=== PATIENT | male | born 1995 | race Two or more races ===

== ENCOUNTER 2017-09-17 17:54 | Emergency (ER) | payer BC ==
--- NOTE | 2017-09-17 18:29 | UC ---
Skin Complaint HPI - HPI Summary HPI Summary: 22 y/o male presents to the urgent care c/o tick bite on his scrotum he noticed on about 1 hrs ago. He tried to remove it, but he feels some tick parts still on him. It itches a little. [place] in [place]. tick was engorged. Pt denies pain fever, MASCORRO, joint pains, SOB, chest pain, abdominal pain , N/V/D. No Hx of tick bite in the past. - History of Current Complaint Time Seen by Provider: 09/17/17 18:26 Stated Complaint: TICK Hx Obtained From: Patient Onset/Duration: Sudden Onset, Lasting Days - 1 day, Still Present, Worse Since - 1 hrs ago Skin Exposure Onset/Duration: Days Ago - 1 day Timing: Constant Onset Severity: Mild Current Severity: Mild Pain Intensity: 0 Pain Scale Used: 0-10 Numeric Location: Discrete - RT side of scrotum Character: Redness - w/ tick remnants Aggravating Factor(s): Touch Alleviating Factor(s): Nothing Associated Signs & Symptoms: Positive: Rash Related History: Possible Reaction to: Insect - Allergy/Home Medications Allergies/Adverse Reactions: Allergies Allergy/AdvReac Type Severity Reaction Status Date / Time Penicillins Allergy Rash Verified 09/17/17 18:37 Home Medications: Home Medications Cimetidine TAB (NF) [Tagamet (NF)] 300 mg PO DAILY 09/17/17 [History Confirmed 09/17/17] Fexofenadine HCl 180 mg PO DAILY 09/17/17 [History Confirmed 09/17/17] Review of Systems Constitutional: Negative Skin: Rash - w/ tick remnants Eyes: Negative ENT: Negative Respiratory: Negative Cardiovascular: Negative Gastrointestinal: Negative Genitourinary: Negative Motor: Negative Neurovascular: Negative Musculoskeletal: Negative Neurological: Negative Psychological: Negative Is Patient Immunocompromised?: No All Other Systems Reviewed And Are Negative: Yes PMH/Surg Hx/FS Hx/Imm Hx Previously Healthy: Yes Other Respiratory History: seasonal allergies GI/ History: Gastroesophageal Reflux - Family History Known Family History: Positive: Diabetes - Social History Occupation: Student Lives: Dormitory/Roommates - Immunization History Vaccination Up to Date: Yes Physical Exam - Summary Physical Exam Summary: Vital Signs Reviewed: Yes General: well developed, well nourished male sitting in the examining table w/o any apparent distress. Eyes: Positive: Conjunctiva Clear - PERRLA, EOMI ENT: Positive: Normal ENT inspection, Hearing grossly normal, Pharynx normal, TMs normal Neck: Positive: Supple, Nontender, No Lymphadenopathy Respiratory: Positive: Chest nontender, Lungs clear, Normal breath sounds Cardiovascular: Positive: RRR, No Murmur, Pulses Normal Abdomen Description: Positive: Nontender, No Organomegaly, Soft. Negative: CVA Tenderness (R), CVA Tenderness (L) Bowel Sounds: Positive: Present Musculoskeletal: Positive: Strength Intact, ROM Intact, No Edema Neurological Exam: Normal Psychological Exam: Normal Skin: Positive: rashes - Rt side of scrotum with tick bite with surrounding erythema, non tender to palpation. tick remnants still present, no swelling or drainage observed. Triage Information Reviewed: Yes Course/Dx - Course Course Of Treatment: 22 y/o male presents to the urgent care c/o tick bite on his scrotum he noticed on about 1 hrs ago. He tried to remove it, but he feels some tick parts still on him. It itches a little. Pt was out in the [facility] yesterday. tick was engorged. Pt denies pain fever, MASCORRO, joint pains, SOB, chest pain, abdominal pain, N/V/D. No Hx of tick bite in the past.Hx obtained. Rt side of scrotum with tick bite with surrounding erythema, non tender to palpation. tick remnants still present, no swelling or drainage observed on examination. Pt feeling very anxious and after remnants removed he felt better. I was assisted BY Nurse Carolina. the skin cleansing and Bacitracin oint applied. Same medication Rx. Antibiotic prophylaxis with Doxycycline given to the patient to prevent lyme Disease.. Pt tolerated well medication. Pt advised to observe the area for the development or Erythema Migrans for upto 30 days following exposure. Advised if he develops fever or erythema Migrans to return to the clinic or PCP for further treatment .Pt understood and agreed with plan of care. - Differential Diagnoses - Skin Complaint Differential Diagnoses: Cellulitis, Local Allergic Reaction, MRSA, Tick Born Illness - Diagnoses Provider Diagnoses: 1- Tick bite Discharge - Sign-Out/Discharge Documenting (check all that apply): Discharge/Admit/Transfer - D/c home - Discharge Plan Condition: Stable Disposition: HOME Prescriptions: Bacitracin OINTMENT* 1 applic TOPICAL BID #1 tube Patient Education Materials: Tick Bite (ED) Referrals: [facility] [place] [facility] REFERRAL [Outside] - 2 Weeks Tracy PRASAD,Chas Benitez [Medical Doctor] - If Needed Additional Instructions: 1- Please observe the area for the development or Erythema Migrans (bull's eye rash) for up to 30 days following exposure. Components of the tick saliva can cause transient erythema that should not be confused with Erythema Migrans. If you develop the bull's eye rash, fever, joint pains please return to the urgent care or f/u with your PCP for further management. 2-Antibiotic prophylaxis with Doxycycline was given to you today to prevent lyme Disease. Lyme serology can be drawn in 2 weeks with your PCP to r/o Lyme disease since there is probability of negative results at early exposure. - Billing Disposition and Condition Condition: STABLE Disposition: HOME
[2017-09-17 18:35] VITALS: BP 130/83
[2017-09-17] MEDS ORDERED: DOXYcycline CAP(*) 100 MG PO ONE (18:55)
== END 2017-09-17 19:22 | disposition home or self-care (01) ==
LOC: UCEAST 17:54
DX: S30.863A Insect bite (nonvenomous) of scrotum and testes, initial encounter (principal); W57.XXXA Bitten or stung by nonvenomous insect and other nonvenomous arthropods, initial encounter; Y93.9 Activity, unspecified; Y92.9 Unspecified place or not applicable; K21.9 Gastro-esophageal reflux disease without esophagitis; Z88.0 Allergy status to penicillin
CPT/HCPCS: 99202; A9270-GY; G0463

== ENCOUNTER 2017-10-05 07:10 | Emergency (ER) | payer BC ==
[2017-10-05 07:32] VITALS: BP 134/73
--- NOTE | 2017-10-05 08:08 | UC ---
Angel Manuel Tenzin, scribed for Radha Alfaro MD on 10/05/17 at 0737 . General HPI - HPI Summary HPI Summary: Pt is a 22 years old male presenting to the CC complaining of fatigue from a tick bite under his scrotum two weeks ago. Pt notes that he removed the tick by himself. Pt came to urgent care and had head removed. Pt given doxy 200mg. Pt reports that he wants to get his test for lyme disease. pt without complaints but states is feeling pressure by friends and family for testing.Pt denies fever , chills, MASCORRO, sore throat, rashes, nauseous or change in appetite.He was given doxycyclin for tick bite. His tetanus is up to date. No aggravating and alleviating factors were noted. Pt is allergic to penicillin. He doesn't drink or smoke. Pt's medications reviewed this visit - History of Current Complaint Chief Complaint: UCGeneralIllness Stated Complaint: WANTS TEST FOR LYME DISEASE Hx Obtained From: Patient, Medical Records Pain Intensity: 0 Associated Signs & Symptoms: Positive: Cough. Negative: Diarrhea, Fever, Headache, Nausea - Allergy/Home Medications Allergies/Adverse Reactions: Allergies Allergy/AdvReac Type Severity Reaction Status Date / Time Penicillins Allergy Rash Verified 09/17/17 18:37 PMH/Surg Hx/FS Hx/Imm Hx - Additional Past Medical History Additional PMH: NEGATIVE: [place], CVA. Previously Healthy: Yes - Surgical History Surgical History: Yes Surgery Procedure, Year, and Place: oral - Family History Known Family History: Positive: Diabetes - Social History Occupation: Student Lives: Dormitory/Roommates Alcohol Use: None Substance Use Type: None Smoking Status (MU): Never Smoked Tobacco - Immunization History Most Recent Tetanus Shot: UTD Vaccination Up to Date: Yes Review of Systems Constitutional: Fatigue Skin: Negative Eyes: Negative ENT: Negative Respiratory: Negative Cardiovascular: Negative Gastrointestinal: Negative Genitourinary: Negative Motor: Negative Neurovascular: Negative Musculoskeletal: Negative Neurological: Negative Psychological: Negative All Other Systems Reviewed And Are Negative: Yes Physical Exam - Summary Physical Exam Summary: Vital Signs Reviewed: Yes A+Ox3, no distress Eyes: Conjunctiva Clear, HI. EOM intact and full ENT: Hearing grossly normal TM x 2 clear, mmoist, uvula midline, no exudate, no erythema Neck: Positive: Supple Respiratory: Positive: No respiratory distress, No accessory muscle use + CTA throughout no w/r Cardiovascular: RRR nl s1, s2 no m/r CBT <2 sec abd soft + BS nt/nd no guarding, no distension Musculoskeletal Exam: OLIVEROS x 4 without difficulty Strength Intact, ROM Intact Neurological: Positive: Alert, + sensation throughout Psychological: Positive: Normal Response To Family Skin: Positive: no rash, no ecchymosis Triage Information Reviewed: Yes Vital Signs: Initial Vital Signs Temp 98.6 F 10/05/17 07:28 Pulse 71 10/05/17 07:28 Resp 18 10/05/17 07:28 BP 134/73 10/05/17 07:28 Pulse Ox 99 10/05/17 07:28 Course/Dx - Course Course Of Treatment: Pt with tick bite 3 weeks ago. removed < 48 hours, not engorged. pt requesing lyme testing. d/w pt low liklihood of lyme dx, given prophylatic, no sx and early to test. pt continues to request. will draw titer. refer to Dr Molina for futher f/u - Differential Dx - Multi-Symptom Provider Diagnoses: tick bite Discharge - Sign-Out/Discharge Documenting (check all that apply): Discharge/Admit/Transfer - Discharge Plan Condition: Stable Disposition: HOME Patient Education Materials: Lyme Disease (ED), Tick Bite (ED) Referrals: [facility] [Outside] Tracy PRASAD,Chas Benitez [Medical Doctor] - No Primary Care Phys,NOPCP [Primary Care Provider] - Additional Instructions: You had blood drawn today to test you for Lyme disease. These results may take up to 7 days to return. You will receive a call from a care nut steamer if they are positive for the disease and medication needs to be prescribed Schedule a follow-up appointment with your primary care provider. If you do not have a provider, you may contact the physician referral center for assistance in establishing with one. You may also follow-up with student health services on campus or Dr. Molina - infectious disease specialist - Billing Disposition and Condition Condition: STABLE Disposition: Home The documentation as recorded by the Angel saha Tenzin accurately reflects the service I personally performed and the decisions made by , Radha Alfaro MD.
== END 2017-10-05 08:00 | disposition home or self-care (01) ==
LOC: UCEAST 07:10
DX: S30.86 Insect bite (nonvenomous) of abdomen, lower back, pelvis and external genitals (principal); R53.83 Other fatigue; R05 Cough; W57.XXXD Bitten or stung by nonvenomous insect and other nonvenomous arthropods, subsequent encounter; Z88.0 Allergy status to penicillin
CPT/HCPCS: 86618; 99211; G0463

== ENCOUNTER 2018-08-09 11:34 | Inpatient (IN) | payer BC ==
--- NOTE | 2018-08-09 11:59 | ED ---
Psychiatric Complaint - HPI Summary HPI Summary: This patient is a 23 year old M brought in by EMS to [facility] with a chief complaint of SI without a plan, for months. Someone unknown called an ambulance for him after he mentioned his symptoms to them. Patient doesnt remember exactly what he said, but he recalls saying to his friend, If you dont do this , then Ill potentially . Patient reports depression pretty incessantly, being more tired waking up than going to bed, feeling dehydrated, and having paler urine. He has never seen anyone for these symptoms and has no formal diagnosis for depression. 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 Allergy to penicillin noted. PMHx of GERD and dramatographia. No PMHx of thyroid issues, heart disease, or asthma. He has never been hospitalized before. PSHx of wisdom teeth removal. He does not drink alcohol or use any other substances. He used to take Tagamet and Martha medications twice a day but is just taking them once a day now. Home Medications Medication Instructions Recorded Confirmed Type Cimetidine TAB (NF) [Tagamet (NF)] 300 mg PO DAILY 09/17/17 08/09/18 History Fexofenadine (NF) [Martha 180 180 mg PO DAILY PRN 08/09/18 08/09/18 History (NF)] - History Of Current Complaint Chief Complaint: EDMentalHealth Time Seen by Provider: 08/09/18 11:48 Hx Obtained From: Patient, EMS Onset/Duration: Lasting Weeks - Lasting months, Still Present Timing: Constant Severity Initially: Moderate Severity Currently: Severe Character: Depressed Aggravating Factor(s): Nothing Alleviating Factor(s): Nothing Associated Signs And Symptoms: Positive: Sleep Disturbance Has Suicidal: Reports: Thoughts. Denies: With A Plan Has Homicidal: Denies: Thoughts - Allergies/Home Medications Allergies/Adverse Reactions: Allergies Allergy/AdvReac Type Severity Reaction Status Date / Time Penicillins Allergy Rash Verified 09/17/17 18:37 Home Medications: Home Medications Fexofenadine (NF) [Martha 180 (NF)] 180 mg PO DAILY PRN 08/09/18 [History Confirmed 08/09/18] PMH/Surg Hx/FS Hx/Imm Hx Previously Healthy: Yes Endocrine/Hematology History: Reports: Other Endocrine/Hematological Disorders - seasonal allergies Cardiovascular History: Denies: Other Cardiovascular Problems/Disorders Respiratory History: Denies: Hx Asthma GI History: Reports: Hx Gastroesophageal Reflux Disease - Surgical History Surgery Procedure, Year, and Place: oral Infectious Disease History: No Infectious Disease History: Denies: Traveled Outside the [place] in Last 30 Days - Family History Known Family History: Positive: Diabetes - Social History Occupation: Student Lives: Dormitory/Roommates Alcohol Use: None Hx Substance Use: No Substance Use Type: Reports: None Smoking Status (MU): Never Smoked Tobacco Review of Systems Positive: Other - Feeling dehydrated Cardiovascular: Negative Respiratory: Negative Gastrointestinal: Negative Positive: other - Paler urine Musculoskeletal: Negative Skin: Negative Neurological: Negative Psychological: Other - SI without a plan, being more tired waking up than going to bed, Positive: Depressed - "pretty incessantly" All Other Systems Reviewed And Are Negative: Yes Physical Exam - Summary Physical Exam Summary: Appearance: well-appearing, no pain distress, well-nourished, calm, cooperative Skin: Warm, color reflects adequate perfusion, dry Head: Normal Head/Face inspection, atraumatic Eyes: Conjunctiva clear ENT: Normal inspection Neck: Supple, no nodes, no JVD Respiratory: Lungs clear, normal breath sounds, no respiratory distress Cardio: RRR, No murmur, pulses normal, brisk capillary refill Abdomen: Soft, nontender Bowel sounds: Present Musculoskeletal: Strength Intact/ROM intact, no calf tenderness, no edema. Psychological: SI with no plan, no HI. Neuro: Alert, muscle tone normal, no focal deficit Triage Information Reviewed: Yes Vital Signs On Initial Exam: Initial Vitals Temp Pulse Resp BP Pulse Ox 97.8 F 72 18 148/77 99 08/09/18 11:37 08/09/18 11:37 08/09/18 11:37 08/09/18 11:37 08/09/18 11:37 Vital Signs Reviewed: Yes Diagnostics - Vital Signs Vital Signs Temp Pulse Resp BP Pulse Ox 08/09/18 11:37 97.8 F 72 18 148/77 99 - Laboratory Result Diagrams: 08/09/18 12:54 08/09/18 12:54 Lab Statement: Any lab studies that have been ordered have been reviewed, and results considered in the medical decision making process. Re-Evaluation - Re-Evaluation 1 Re-Evaluation Time: 14:00 Change: Unchanged Comment: Patient has been medically cleared and can receive a MHE. Course/Dx - Course Course Of Treatment: This patient is a 23 year old M brought in by EMS to [facility] with a chief complaint of SI without plans for months. He was medically cleared at 14:[address] Kevin Sequeira, psychiatry, admitted the patient for unspecified depression at 15:08. - Differential Dx/Clinical Impression Differential Diagnosis/HQI/PQRI: Positive: Bipolar Disorder, Depression, Suicidal Ideation Provider Diagnosis: Depression Discharge - Sign-Out/Discharge Documenting (check all that apply): Patient Departure - Admit Patient Received Moderate/Deep Sedation with Procedure: No - Discharge Plan Condition: Improved Disposition: [facility]AC[facility] - Billing Disposition and Condition Condition: IMPROVED Disposition: Psychiatric Facility [facility] - Attestation Statements Document Initiated by Scribe: Yes Documenting Scribe: Marino Magallon Provider For Whom Scribe is Documenting (Include Credential): Karina Rosas MD Scribe Attestation: Marino Manuel, scribed for Karina Rosas MD on 08/16/18 at 225. Scribe Documentation Reviewed: Yes Provider Attestation: The documentation as recorded by the Marino saha accurately reflects the service I personally performed and the decisions made by me, Karina Rosas MD Status of Scribe Document: Viewed
[2018-08-09 12:38] LABS: Urine Appearance Clear; Urine Bilirubin Negative (Negative); Urine Blood Negative (Negative); Urine Color Yellow; Urine Glucose Negative (Negative); Urine Ketones Negative (Negative); Urine Nitrite Negative (Negative); Urine Protein Negative (Negative); Urine Urobilinogen Negative (Negative)
[2018-08-09 12:50] LABS: Urine Benzodiazepine Screen None Detected (None Detect); Urine Opiates Screen None Detected (None Detect)
[2018-08-09 13:21] LABS: ABS Basophils 0 10^3/ul (0-0.2); ABS Eosinophils 0 10^3/ul (0-0.6); ABS Lymphocytes 1.8 10^3/ul (1.0-4.8); ABS Monocytes 0.5 10^3/ul (0-0.8); ABS Neutrophils 3.5 10^3/ul (1.5-7.7); ABS Nucleated RBC 0 10^3/ul; Eosinophil % 0.8 %; Hematocrit 47 % (36-46); Hemoglobin 15.7 g/dL (14.0-18.0); Lymphocyte % 31.1 %; Mean Corpuscular HGB Conc 33 g/dL (31-36); Mean Corpuscular Hemoglobin 30 pg (27-31); Mean Corpuscular Volume 91 fL (80-94); Mean Platelet Volume 9.9 fL (7.4-10.4); Nucleated Red Blood Cells % 0.1; Platelet Count 149 10^3/uL (150-450); Red Cell Distribution Width 13 % (10.5-15); White Blood Count 5.9 10^3/uL (3.5-10.8)
[2018-08-09 13:32] LABS: ALT 24 U/L (7-52); AST 21 U/L (13-39); Albumin 4.7 g/dL (3.2-5.2); Albumin/Globulin Ratio 1.6 (1-3); Alkaline Phosphatase 84 U/L (34-104); Anion Gap 6 mmol/L (2-11); BUN/Creatinine Ratio 11.5 (8-20); Blood Urea Nitrogen 10 mg/dL (6-24); CO2 Carbon Dioxide 28 mmol/L (22-32); Calcium 9.7 mg/dL (8.6-10.3); Chloride 104 mmol/L (101-111); EGFR Non-African American 110.8 (>60); Glucose 89 mg/dL (70-100); Potassium 4.1 mmol/L (3.5-5.0); Sodium 138 mmol/L (135-145); Total Protein 7.7 g/dL (6.4-8.9)
[2018-08-09 13:49] LABS: Acetaminophen < 15 mcg/mL; Alcohol < 10 mg/dL (<10); Salicylate < 2.50 mg/dL (<30)
[2018-08-09 14:03] LABS: TSH (Thyroid Stimulating Horm) 1.72 mcIU/mL (0.34-5.60)
[2018-08-09] MEDS ORDERED: Al Hydrox/Mg Hydrox/Simet LIQ* 30 ML UDC PO PRN (18:14)
[2018-08-09] MEDS ORDERED: Acetaminophen TAB* 325 MG PO PRN (18:14)
[2018-08-10 07:52] LABS: HDL Cholesterol 40.6 mg/dL
--- NOTE | 2018-08-10 08:52 | HP ---
H&P (Free Text) History and Physical: Justification for admission: Immediate Safety. CC " I try and control things" The patient was brought to [facility] after telling his friend that he was going to end his life. He said that he did not have a plan but staff report mentions plan to jump off bridge and researching suicidal methods. Denied access to firearms or stockpiles of medications. He reported having sleep disturbance lately. Reported adequate appetite. He reported that his girlfriend broke up with him in January and he has been feeling tormented and depressed. He said that he attempted to talk to her at dinner with friends. He reported having compulsions to masturbate daily and feels bad about it. He mentions masturbating daily and sometimes uses masturbation as a coping mechanism to stress and depression. He reports his mood to be lower than normal and has been unable to feel much emotion. The patient homicidal ideation intent or plan. The patient denied auditory and/ or visual hallucinations. MDD Reported feeling depressed or having diminished interest in hobbies or interests which were present in the past , for most of the time, lasting more than 2 weeks. He said he use to exercise and no longer does. He reported loss of energy and lack of motivation to complete tasks. Denied unintentional weight loss or appetite . Has interruption of sleep or feeling tired throughout the day. He has overwhelming feelings of guilt , and decreased concentration. Anxiety He at times feels socially awkward and anxious in social settings. He denied panic attacks. Bipolar Denied symptoms of romelia such as having many ideas at once. Denied increased talkativeness where no one can interrupt. Denied feeling irritable most of the time while having an persistent abundance of energy most of the day without the use of energy drinks, stimulants, or recreational drug use. Denied an increase in intensity in goal directed activities. Denied having the decreased need to sleep for days , having prolonged elevated heighted mood , or feeling on top of the world. Denied impulsive risky sexual encounters. Denied spending money recklessly , going on spending sprees wiping out savings. Denied impulsively traveling out of town or country, having super wagner, and unrealistic wealth or fame. Psychosis Does not endorse hearing things that other people do not hear or seeing things other people do not see. Denied feeling that TV is making references. Denied feeling that people are spying , following , or reading their thoughts. Phobias: Patient denied having excessive fear of a particular thing or situation. Eating disorders: Patient denied having excessive eating habits or feelings of guilt after eating. Denied repeated episodes of self induced vomiting after eating. PTSD Denied flashbacks, nightmares and avoidance of a prior traumatic event. PAST PSYCHIATRIC HISTORY: Prior Diagnosis : None History of past Psychiatric Hospitalizations: No prior psychiatric admission. History of past suicide/homicide attempts : Denied past suicide attempts. Denied past homicidal incidents. Outpatient follow-up: None Medications: No Past trials of medications FAMILY HISTORY: - Suicide: Denied family history of suicide. - Mental illness: Denied a history of mental health in immediate family members. - Substance abuse: Denied substance abuse among family members. SUBSTANCE ABUSE HISTORY: - EtOH: Denied using recently or in the past. - Tobacco: Denied using recently or in the past. - Cannabis: Denied using recently or in the past. - Heroin: Denied using recently or in the past. - Cocaine: Denied using recently or in the past. - Substance abuse treatment: Denied past substance abuse treatment SOCIAL HISTORY: - Childhood: Grew up in [place] and [place]. He described himself as stubborn and had tantrums as a kid when he did not get his way. Currently at [employer] and is single and has no children. - Legal history: Denied - service history: Denied PAST MEDICAL HISTORY: Denied heart disease, diabetes, cancer and/ or other medical conditions. - Allergies: Denied drug or other allergies. Physical Exam: Please see ED note Mental Status Exam on Admission APPEARANCE : 23 year old [place] male who appears stated age. Patient is not malodourous, and appears to have fair hygiene and grooming. BEHAVIOR: Cooperative , calm EYE CONTACT: Fair PSYCHOMOTOR ACTIVITY: No psychomotor agitation or retardation. MOVEMENTS: No abnormal movements observed. SPEECH : Normal rate, rhythm, volume and tone. MOOD : " Sad" AFFECT : blunted THOUGHT PROCESS: formulated and organized in a logical, linear goal directed manner. THOUGHT CONTENT: preoccupation about past relationship PERCEPTION: No current auditory or visual hallucinations. Doesnt appear to be responding to internal cues. No evidence of depersonalization , de-realization, or illusions SUICIDALITY Recent suicidal ideation HOMICIDALITY Denied homicidal ideation, intent or plan. Insight/judgment: Poor insight and judgment ORIENTATION: Oriented to self, location, and time. Diagnosis on Admission: Major depressive Disorder, severe. Assessment: 23 year old [place] male with no prior psychiatric history comes to the emergency room after expressing suicidal ideation to a friend. Plan #Admit to [facility], Q15 minute observation. Start regular diet. Encourage participation in activities on the milieu. #Patient evaluated in ED and was determined by the emergency room Physician to be medically stable for admission to the [facility]. # Justification for Admission: For immediate safety per outlined in the [place] Mental Hygiene Code. # Voluntary admission. The patient requires inpatient admission at this time to assure safety, receive treatment and work toward stabilization. # Labs ordered: CBC, CMP, UDS, TSH, HBA1c, TSH, Toxicology screen, Urine analysis, and lipid profile. # Obtain collateral information once release is signed. # Collaboration with Social Work to assist with disposition and after care. #start Paxil 10mg Daily with plan to monitor tolerance and increase accordingly. To consider Naltrexone for compulsions to masturbation. #Goals before discharge include: Decrease depression #MMPI The risks, benefits, and alternative treatment options were discussed as well as of the risks of refusing treatment. After this discussion and an acknowledgement of this understanding was made. A risk/ benefit assessment of treatment was considered and discussed with the patient. When comparing the risks of treatment with the dangers of not receiving treatment, the benefits of treatment outweigh the treatment risks at this time. Risks of suicidal ideation , behavioral changes, dystonia, movement disorders, cardiac conduction changes , serotonin syndrome, metabolic risks and NMS were among some of the risks discussed.
[2018-08-10] MEDS: Vitamin THERAPEUTIC TAB PO SCH (09:07)
[2018-08-10] MEDS: Famotidine TAB* 20 MG PO SCH (09:07)
[2018-08-10] MEDS: Cetirizine* 10 MG TAB PO PRN (09:07)
[2018-08-10] MEDS ORDERED: PARoxetine HCL TAB* 10 MG PO SCH (15:00)
[2018-08-11] MEDS: Famotidine TAB* 20 MG PO SCH (09:25)
[2018-08-11] MEDS: Cetirizine* 10 MG TAB PO PRN (09:25)
[2018-08-11] MEDS: Vitamin THERAPEUTIC TAB PO SCH (09:25)
[2018-08-11] MEDS: PARoxetine HCL TAB* 20 MG PO SCH (09:28)
[2018-08-12] MEDS: Vitamin THERAPEUTIC TAB PO SCH (09:24)
[2018-08-12] MEDS: Cetirizine* 10 MG TAB PO PRN (09:24)
[2018-08-12] MEDS: Famotidine TAB* 20 MG PO SCH (09:24)
[2018-08-12] MEDS: PARoxetine HCL TAB* 20 MG PO SCH (09:24)
--- NOTE | 2018-08-12 16:15 | PN ---
Subjective - Subjective Date of Service: 08/12/18 Subjective: Willy endorses improving mood, absence of suicidal ideation and he contracts for safety. He reports slight nausea but he is not sure if it is related to to the Paroxetine. Per staff, he is adherent to unit's routines. Objective - General Observations Appearance: Well Groomed Appears Stated Age: Yes Stature: WNL Posture: WNL Eye Contact: Average Behavior/Activity: WNL - Interaction Observations Attitude Towards Examiner: Cooperative Stated Mood: Euthymic Affect: Full Speech Pattern/Tone: Clear Thought Process: Coherent, Goal Directed Perception: WNL Thought Content: WNL Hallucination Type: None Delusion Type: None - Cognitive Function Orientation: A&O x 4 Level of Consciousness: Alert Cognition: WNL Estimated Intelligence: Normal Insight: WNL Judgment Within Normal Limits: Yes - Medication Compliance Cooperative with Inpatient Medication Regimen: Yes - Group Participation Participates in Group Activities: Yes Assessment - Assessment Clinical Impression: Assessment: 23 year old Iranian male with no prior psychiatric history comes to the emergency room after expressing suicidal ideation to a friend. Safe on checks, reporting lower distress level, denying suicidality and karmen for safety. Tolerating trial of paroxetine Plan - Plan Treatment Plan: Name: WILLY MOONEY Birthdate: 1995 [id number] Medications: Current Medications Acetaminophen (Tylenol Tab*) 650 mg PO Q4H PRN PRN Reason: PAIN or TEMP > 101 F Al Hydrox/Mg Hydrox/Simethicone (Maalox Plus*) 30 ml PO Q4H PRN PRN Reason: INDIGESTION Cetirizine HCl (Zyrtec*) 10 mg PO DAILY PRN PRN Reason: ALLERGY SYMPTOMS Last Admin: 08/12/18 09:24 Dose: 10 mg Famotidine (Pepcid Tab*) 20 mg PO DAILY [facility] Last Admin: 08/12/18 09:24 Dose: 20 mg Multivitamins (Theragran Tab*) 1 tab PO DAILY [facility] Last Admin: 08/12/18 09:24 Dose: 1 tab Paroxetine HCl (Paxil Tab*) 20 mg PO DAILY [facility] Last Admin: 08/12/18 09:24 Dose: 20 mg - Discharge Plan Discharge Plan: Outpatient Follow Up Outpatient Program: [facility]
--- NOTE | 2018-08-13 08:54 | PN ---
Subjective - Subjective Date of Service: 08/13/18 Service Type: 63337 Hosp care 35 min high complexity Subjective: Nursing Report: Patient was visible on unit, no chemical restraints or PRNs. Slept overnight without incident. He is attending group activities. CC: " I thought about things" Patient reported that he got a lot out of the groups. He was able to verbalize the events leading up to his admission. He had family visit and they were receptive and supportive of him being here. Patient was seen and evaluated in the common room. The patient reported he feels safe on the unit and is interacting with peers. He reported having an adequate appetite and sleep. The patient reports attending and participating in day groups. Per nursing no behavioral issues or overnight events reported. Patient reported that he is tolerating medications. He denied suicidal ideation, intent or plan. He denied homicidal ideation intent or plan. He denied auditory and or visual hallucinations. Objective - General Observations Appearance: Neat Appears Stated Age: Yes Stature: WNL Posture: WNL Eye Contact: Average Behavior/Activity: WNL - Interaction Observations Attitude Towards Examiner: Cooperative Stated Mood: Euthymic Affect: Blunted Speech Pattern/Tone: Clear Thought Process: Coherent Perception: WNL Thought Content: WNL Hallucination Type: None Delusion Type: None - Cognitive Function Orientation: A&O x 4 Level of Consciousness: Awake Cognition: WNL Estimated Intelligence: Normal Insight: WNL - Medication Compliance Cooperative with Inpatient Medication Regimen: Yes - Group Participation Participates in Group Activities: Yes Assessment - Assessment Merits Inpatient Hospitalization: For Immediate Safety Clinical Impression: Assessment: 23 year old Austrian male with no prior psychiatric history comes to the emergency room after expressing suicidal ideation to a friend. Plan - Plan Treatment Plan: Name: JAGUAR MOONEY Birthdate: 1995 [id number] #Q30, computer access, staff pass. # The patient requires inpatient admission at this time to assure safety, receive treatment and work toward stabilization. # Paxil 20mg daily tolerating well # Collaboration with Social Work to assist with disposition and after care. #Contact Family for collateral, release signed # Tentative discharge Monday Patient would benefit from CBT treatment approach #Goals before discharge include: Treatment of Depression, decrease/ eradicate suicidal ideation. Improve self awareness. Sodium 138 mmol/L (135-145) 08/09/18 12:54 Potassium 4.1 mmol/L (3.5-5.0) 08/09/18 12:54 BUN 10 mg/dL (6-24) 08/09/18 12:54 Creatinine 0.87 mg/dL (0.67-1.17) 08/09/18 12:54 Hemoglobin A1c 5.3 % (4.0-5.6) 08/10/18 07:13 Calcium 9.7 mg/dL (8.6-10.3) 08/09/18 12:54 AST 21 U/L (13-39) 08/09/18 12:54 ALT 24 U/L (7-52) 08/09/18 12:54 Triglycerides 64 mg/dL 08/10/18 07:13 Cholesterol 116 mg/dL 08/10/18 07:13 LDL Cholesterol 63 mg/dL 08/10/18 07:13 Vital Signs Temp Pulse Resp BP Pulse Ox 99.1 F 77 17 120/76 100 08/13/18 08:12 08/13/18 08:12 08/13/18 08:12 08/13/18 08:12 08/13/18 08:12 Continued Medication Management: Continue Outpt Medication Medications: Current Medications Acetaminophen (Tylenol Tab*) 650 mg PO Q4H PRN PRN Reason: PAIN or TEMP > 101 F Al Hydrox/Mg Hydrox/Simethicone (Maalox Plus*) 30 ml PO Q4H PRN PRN Reason: INDIGESTION Cetirizine HCl (Zyrtec*) 10 mg PO DAILY PRN PRN Reason: ALLERGY SYMPTOMS Last Admin: 08/12/18 09:24 Dose: 10 mg Famotidine (Pepcid Tab*) 20 mg PO DAILY [facility] Last Admin: 08/12/18 09:24 Dose: 20 mg Multivitamins (Theragran Tab*) 1 tab PO DAILY [facility] Last Admin: 08/12/18 09:24 Dose: 1 tab Paroxetine HCl (Paxil Tab*) 20 mg PO DAILY [facility] Last Admin: 08/12/18 09:24 Dose: 20 mg - Discharge Plan Discharge Plan: Inpatient Hospitalization
[2018-08-13] MEDS: PARoxetine HCL TAB* 20 MG PO SCH (08:59)
[2018-08-13] MEDS: Vitamin THERAPEUTIC TAB PO SCH (08:59)
[2018-08-13] MEDS: Famotidine TAB* 20 MG PO SCH (08:59)
[2018-08-14] MEDS: Vitamin THERAPEUTIC TAB PO SCH (09:20)
[2018-08-14] MEDS: Famotidine TAB* 20 MG PO SCH (09:20)
[2018-08-14] MEDS: PARoxetine HCL TAB* 20 MG PO SCH (09:21)
[2018-08-14] MEDS: Cetirizine* 10 MG TAB PO PRN (09:21)
[2018-08-14 10:03] VITALS: BP 129/81
--- NOTE | 2018-08-14 10:16 | DS ---
Subjective - Subjective Service Types: 53750 [facility] Hospital Day Mgmt complex over 30 min Discharge Date: 08/14/18 Subjective: CC: " I am ready" Patient stated that he is ready to be discharged and has gained insight into what brought him here. He said that he plans to take an exam for school today. He plans to move on from his last relationship and put it aside. His mother was called and is in agreement with him being discharged today. He plans to follow up at [facility] for a outpatient appointment today. Justification for admission: Immediate Safety. CC " I try and control things" The patient was brought to [facility] after telling his friend that he was going to end his life. He said that he did not have a plan but staff report mentions plan to jump off bridge and researching suicidal methods. Denied access to firearms or stockpiles of medications. He reported having sleep disturbance lately. Reported adequate appetite. He reported that his girlfriend broke up with him in January and he has been feeling tormented and depressed. He said that he attempted to talk to her at dinner with friends. He reported having compulsions to masturbate daily and feels bad about it. He mentions masturbating daily and sometimes uses masturbation as a coping mechanism to stress and depression. He reports his mood to be lower than normal and has been unable to feel much emotion. The patient homicidal ideation intent or plan. The patient denied auditory and/ or visual hallucinations. MDD Reported feeling depressed or having diminished interest in hobbies or interests which were present in the past , for most of the time, lasting more than 2 weeks. He said he use to exercise and no longer does. He reported loss of energy and lack of motivation to complete tasks. Denied unintentional weight loss or appetite . Has interruption of sleep or feeling tired throughout the day. He has overwhelming feelings of guilt , and decreased concentration. Anxiety He at times feels socially awkward and anxious in social settings. He denied panic attacks. Bipolar Denied symptoms of romelia such as having many ideas at once. Denied increased talkativeness where no one can interrupt. Denied feeling irritable most of the time while having an persistent abundance of energy most of the day without the use of energy drinks, stimulants, or recreational drug use. Denied an increase in intensity in goal directed activities. Denied having the decreased need to sleep for days , having prolonged elevated heighted mood , or feeling on top of the world. Denied impulsive risky sexual encounters. Denied spending money recklessly , going on spending sprees wiping out savings. Denied impulsively traveling out of town or country, having super wagner, and unrealistic wealth or fame. Psychosis Does not endorse hearing things that other people do not hear or seeing things other people do not see. Denied feeling that TV is making references. Denied feeling that people are spying , following , or reading their thoughts. Phobias: Patient denied having excessive fear of a particular thing or situation. Eating disorders: Patient denied having excessive eating habits or feelings of guilt after eating. Denied repeated episodes of self induced vomiting after eating. PTSD Denied flashbacks, nightmares and avoidance of a prior traumatic event. PAST PSYCHIATRIC HISTORY: Prior Diagnosis : None History of past Psychiatric Hospitalizations: No prior psychiatric admission. History of past suicide/homicide attempts : Denied past suicide attempts. Denied past homicidal incidents. Outpatient follow-up: None Medications: No Past trials of medications FAMILY HISTORY: - Suicide: Denied family history of suicide. - Mental illness: Denied a history of mental health in immediate family members. - Substance abuse: Denied substance abuse among family members. SUBSTANCE ABUSE HISTORY: - EtOH: Denied using recently or in the past. - Tobacco: Denied using recently or in the past. - Cannabis: Denied using recently or in the past. - Heroin: Denied using recently or in the past. - Cocaine: Denied using recently or in the past. - Substance abuse treatment: Denied past substance abuse treatment SOCIAL HISTORY: - Childhood: Grew up in [place] and [place]. He described himself as stubborn and had tantrums as a kid when he did not get his way. Currently at [facility] and is single and has no children. - Legal history: Denied - service history: Denied PAST MEDICAL HISTORY: Denied heart disease, diabetes, cancer and/ or other medical conditions. - Allergies: Denied drug or other allergies. Physical Exam: Please see ED note Mental Status Exam on Admission APPEARANCE : 23 year old Palestinian male who appears stated age. Patient is not malodourous, and appears to have fair hygiene and grooming. BEHAVIOR: Cooperative , calm EYE CONTACT: Fair PSYCHOMOTOR ACTIVITY: No psychomotor agitation or retardation. MOVEMENTS: No abnormal movements observed. SPEECH : Normal rate, rhythm, volume and tone. MOOD : " Sad" AFFECT : blunted THOUGHT PROCESS: formulated and organized in a logical, linear goal directed manner. THOUGHT CONTENT: preoccupation about past relationship PERCEPTION: No current auditory or visual hallucinations. Doesnt appear to be responding to internal cues. No evidence of depersonalization , de-realization, or illusions SUICIDALITY Recent suicidal ideation HOMICIDALITY Denied homicidal ideation, intent or plan. Insight/judgment: Poor insight and judgment ORIENTATION: Oriented to self, location, and time. Diagnosis on Admission: Major depressive Disorder, severe. Assessment: 23 year old Palestinian male with no prior psychiatric history comes to the emergency room after expressing suicidal ideation to a friend. Diagnosis on Discharge: Condition at the time of discharge: At the time of discharge patient showed improvement of sleep and appetite. The patient was not a danger to self or others. The patient denied suicidal ideation , intent or plan. The patient denied homicidal targets, ideation, intent or plan. This patient participated in psychosocial rehabilitation and gained some insight into problems. The patient gained insight into mental illness, triggers, and treatment. The patient took medication as prescribed. The patient denied side effects of medication and objective signs of side effects were not evident. Therapy Resources were offered to the patient. Patient was given a supply of prescriptions at the time of discharge. The patient plans to attend follow up care with the follow up arrangements that were discussed and put in place. Patient was asked to keep appointments as scheduled, take medication as prescribed, have routine follow up care with their primary care physician and refrain from any use of alcohol or drugs. Objective - Appearance Appearance: Well Developed/Nourished Dysmorphic Features: No Hygiene: Normal Grooming: Well Kept - Behavior Psychomotor Activities: Normal Exhibits Abnormal Movement: No - Attitude and Relatedness Attitude and Relatedness: Cooperative Eye Contact: Fair - Speech Quality: Unpressured Latencies: Normal Quantity: Appropriate - Mood Patient's Decription of Mood: "Fine" - Affect Observed Affect: Non-labile Affect Consistent with: Euthymia - Thought Process Patient's Thought Process: Coherent Thought Content: No Passive Wish, No Suicidal Planning, No Homicidal Ideation, No Paranoid Ideation - Sensorium Experiencing Hallucinations: No, Sensorium is Clear Type of Hallucinations: Visual: No, Auditory: No, Command: No - Level of Consciousness Level of Consciousness: Alert Orientation: Yes Intact, Yes Orientated to Time, Yes Orientated to Place, Yes Orientated to Person - Impulse Control Impulse Control: Intact - Insight and Judgement Insight and Judgement: Good - Group Participation Particating in Group Activities: Yes - Medication Management Medication Management Adherence: Yes Treatment Course & Assessment Clinical Course & Impression: Hospital course part A: 23 year old Palestinian male with no prior psychiatric history comes to the emergency room after expressing suicidal ideation to a friend. Hospital course part B: Labs ordered included CBC, CMP, UDS, TSH, HBA1c, TSH, Toxicology screen, Urine analysis, and lipid profile. Labs were reviewed and did not require the need for further evaluation. Vital signs were monitored during the course of admission. The patient was admitted to the adult behavioral unit and placed on 15 minute check for safety. At a later time the patient was on Q30 minute observation and staff pass privileges. With those limits being extended , there were no occurrence of behavioral incidents. The patient did well on the unit and went to groups. Interacted with peers had adequate sleep and regular appetite. Tolerated medication changes without side effects. Group therapy and services were offered. The risks, benefits, and alternative treatment options were discussed as well as of the risks of refusing treatment. Treatment associated risks discussed. After this discussion and made an acknowledgement of this understanding. Follow up care appointments were put in place for follow up care within 7 days of discharge. Patient presents with a broader range of affect, and the absence of depressed mood, delusions, perceptual disturbances and or suicidal ideation. Overall, the patient responded well to inpatient treatment as evidenced by their report of strengthening of coping mechanisms , reduced distress, and more positive outlook on circumstances. Of note there was absence of suicidal ideation. The patient expressed readiness for discharge home. Safety precautions were put in place which included involving family to closely monitor for changes in mental state. In addition, implementing follow up care, screening for removing/securing firearms, weapons and stockpile of medications. Patient/ family instructed to immediately call 911 should any safety concerns arise. The patient was advised of the 24 hour / 7 days a week availability of the emergency room and to call 911 in the event of becoming suicidal and/ or homicidal and for all other emergencies. The patient was informed of the contact information for [facility], Suicide Prevention and Crisis Services, National Suicide Prevention Lifeline, [facility], Alcoholics Anonymous, and [facility]. Medications started included paxil 20mg po daily. He experienced some nausea at first and plans to wait 2 weeks and see if this subsides. He was offered to change medications and preferred to wait and see if side effects remit. He is worried about how masturbating makes him self ashamed of himself. He plans to talk about this in therapy. He was advised of the sexual side effects of SSRIs. He looks forward to completing an exam today and seeing his friends. He plans to no longer have contact with his ex- girl friend and plans to put his past relationship aside. Family was contacted and in agreement with discharge plan. Patient will be discharged to his apartment in [place] Follow up appointments at [facility] services today. Improvements in patient from the time of admission include: Improved affect, sleep and decrease in anxiety. No longer suicidal and no longer having feelings of hopelessness. Risk factors: Age, single, history of mental illness. Protective factors: Currently no suicidal ideation, intent or plan. No prior history of suicide attempt. Has family as support system. No history of service. Currently no feelings of hopelessness, not in an occupation of social isolation, doesnt have multiple medical conditions, no family history of suicide, doesnt have access to firearms. Doesnt have command hallucinations and or psychotic features at this time. No history of substance abuse. No history of alcohol abuse. Not a anniversary of a loss of a loved one. Currently future orientated. Patient engaged in treatment and compliant with medication. Vital Signs 08/13/18 08/14/18 20:04 07:49 Temperature 98.9 F Pulse Rate 63 Respiratory 16 16 Rate Blood Pressure 129/81 (mmHg) O2 Sat by Pulse 100 Oximetry Laboratory Results WBC 5.9 10^3/uL (3.5-10.8) 08/09/18 12:54 RBC 5.20 10^6 /uL (4.18-5.48) 08/09/18 12:54 Hgb 15.7 g/dL (14.0-18.0) 08/09/18 12:54 Hct 47 % (36-46) H 08/09/18 12:54 MCV 91 fL (80-94) 08/09/18 12:54 MCH 30 pg (27-31) 08/09/18 12:54 MCHC 33 g/dL (31-36) 08/09/18 12:54 RDW 13 % (10.5-15) 08/09/18 12:54 Plt Count 149 10^3/uL (150-450) L 08/09/18 12:54 MPV 9.9 fL (7.4-10.4) 08/09/18 12:54 Neut % (Auto) 58.6 % 08/09/18 12:54 Lymph % (Auto) 31.1 % 08/09/18 12:54 [place] % (Auto) 8.7 % 08/09/18 12:54 Eos % (Auto) 0.8 % 08/09/18 12:54 Baso % (Auto) 0.8 % 08/09/18 12:54 Absolute Neuts (auto) 3.5 10^3/ul (1.5-7.7) 08/09/18 12:54 Absolute Lymphs (auto) 1.8 10^3/ul (1.0-4.8) 08/09/18 12:54 Absolute Monos (auto) 0.5 10^3/ul (0-0.8) 08/09/18 12:54 Absolute Eos (auto) 0 10^3/ul (0-0.6) 08/09/18 12:54 Absolute Basos (auto) 0 10^3/ul (0-0.2) 08/09/18 12:54 Absolute Nucleated RBC 0 10^3/ul 08/09/18 12:54 Nucleated RBC % 0.1 08/09/18 12:54 Sodium 138 mmol/L (135-145) 08/09/18 12:54 Potassium 4.1 mmol/L (3.5-5.0) 08/09/18 12:54 Chloride 104 mmol/L (101-111) 08/09/18 12:54 Carbon Dioxide 28 mmol/L (22-32) 08/09/18 12:54 Anion Gap 6 mmol/L (2-11) 08/09/18 12:54 BUN 10 mg/dL (6-24) 08/09/18 12:54 Creatinine 0.87 mg/dL (0.67-1.17) 08/09/18 12:54 Est GFR ( Amer) 134.0 (>60) 08/09/18 12:54 Est GFR (Non-Af Amer) 110.8 (>60) 08/09/18 12:54 BUN/Creatinine Ratio 11.5 (8-20) 08/09/18 12:54 Glucose 89 mg/dL (70-100) 08/09/18 12:54 Hemoglobin A1c 5.3 % (4.0-5.6) 08/10/18 07:13 Calcium 9.7 mg/dL (8.6-10.3) 08/09/18 12:54 Total Bilirubin 0.60 mg/dL (0.2-1.0) 08/09/18 12:54 AST 21 U/L (13-39) 08/09/18 12:54 ALT 24 U/L (7-52) 08/09/18 12:54 Alkaline Phosphatase 84 U/L (34-104) 08/09/18 12:54 Total Protein 7.7 g/dL (6.4-8.9) 08/09/18 12:54 Albumin 4.7 g/dL (3.2-5.2) 08/09/18 12:54 Globulin 3.0 g/dL (2-4) 08/09/18 12:54 Albumin/Globulin Ratio 1.6 (1-3) 08/09/18 12:54 Triglycerides 64 mg/dL 08/10/18 07:13 Cholesterol 116 mg/dL 08/10/18 07:13 LDL Cholesterol 63 mg/dL 08/10/18 07:13 HDL Cholesterol 40.6 mg/dL 08/10/18 07:13 TSH 1.72 mcIU/mL (0.34-5.60) 08/09/18 12:54 Urine Color Yellow 08/09/18 12:15 Urine Appearance Clear 08/09/18 12:15 Urine pH 7.0 (5-9) 08/09/18 12:15 Ur Specific [place] 1.010 (1.010-1.030) 08/09/18 12:15 Urine Protein Negative (Negative) 08/09/18 12:15 Urine Ketones Negative (Negative) 08/09/18 12:15 Urine Blood Negative (Negative) 08/09/18 12:15 Urine Nitrate Negative (Negative) 08/09/18 12:15 Urine Bilirubin Negative (Negative) 08/09/18 12:15 Urine Urobilinogen Negative (Negative) 08/09/18 12:15 Ur Leukocyte Esterase Negative (Negative) 08/09/18 12:15 Urine Glucose Negative (Negative) 08/09/18 12:15 Salicylates < 2.50 mg/dL (<30) 08/09/18 12:54 Urine Opiates Screen None detected (None Detect) 08/09/18 12:15 Acetaminophen < 15 mcg/mL 08/09/18 12:54 Ur Barbiturates Screen None detected (None Detect) 08/09/18 12:15 Ur Phencyclidine Scrn None detected (None Detect) 08/09/18 12:15 Ur Amphetamines Screen None detected (None Detect) 08/09/18 12:15 U Benzodiazepines Scrn None detected (None Detect) 08/09/18 12:15 Urine Cocaine Screen None detected (None Detect) 08/09/18 12:15 U Cannabinoids Screen None detected (None Detect) 08/09/18 12:15 Serum Alcohol < 10 mg/dL (<10) 08/09/18 12:54 Merits Inpatient Hospitalization: No Clear for Discharge: Adequate Clinical Respons Discharge Planning - Discharge Planning Discharge Plan: Outpatient Follow Up Outpatient Program: Counseling/Psych Services at [facility] Recommendations for Continuing Care: Medication Management Medications: Current Medications Acetaminophen (Tylenol Tab*) 650 mg PO Q4H PRN PRN Reason: PAIN or TEMP > 101 F Al Hydrox/Mg Hydrox/Simethicone (Maalox Plus*) 30 ml PO Q4H PRN PRN Reason: INDIGESTION Cetirizine HCl (Zyrtec*) 10 mg PO DAILY PRN PRN Reason: ALLERGY SYMPTOMS Last Admin: 08/14/18 09:21 Dose: 10 mg Famotidine (Pepcid Tab*) 20 mg PO DAILY [facility] Last Admin: 08/14/18 09:20 Dose: 20 mg Multivitamins (Theragran Tab*) 1 tab PO DAILY [facility] Last Admin: 08/14/18 09:20 Dose: 1 tab Paroxetine HCl (Paxil Tab*) 20 mg PO DAILY [facility] Last Admin: 08/14/18 09:21 Dose: 20 mg Discharge Planning: Prescriptions provided for discharge [x] Yes [] No Follow up care details as per social work arrangements. Patient response to discharge plan: [] eager for discharge [x] agreeable with discharge plan [] ambivalent about discharge [] disagrees with discharge today
== END 2018-08-14 12:48 | disposition home or self-care (01) | DRG 751 ==
LOC: ED 11:34 → BSU 15:41
PROVIDERS: ADMIT Psychiatry & Neurology Psychiatry; ATTEND Psychiatry & Neurology Psychiatry
DX: F32.2 Major depressive disorder, single episode, severe without psychotic features (principal); R45.851 Suicidal ideations; E86.0 Dehydration; K21.9 Gastro-esophageal reflux disease without esophagitis; Z83.3 Family history of diabetes mellitus; Z88.0 Allergy status to penicillin
CPT/HCPCS: 36415; 80053; 80061; 80307; 80320; 80329; 81003; 83036; 84443; 85025; 99222; 99231; 99233; 99238; 99282; A9270-GY; G0480